=== PATIENT | male | born 1995 | race Caucasian/White ===

== ENCOUNTER 2019-09-23 22:00 | Emergency (ER) | payer MEDICAID ==
[~2019-09-23] VITALS: Ht 167.6 cm; Wt 122.0 kg
[~2019-09-23 22:00] MED LIST: QUET100T4 PO; TRAZ50TA66 PO
[2019-09-23 22:04] VITALS: BP 135/83
--- NOTE | 2019-09-23 22:06 | NUR ---
PT BIB EMS FROM OUTSIDE HIS APARTMENT COMPLEX. REPORT RC'VD FROM EMS. PT PLACED IN LOBBY.
[2019-09-23] MEDS ORDERED: OLANZAPINE 10 MG TABLET PO ONE (22:30)
[2019-09-23] MEDS ORDERED: TRAZODONE 50MG TABLET PO PRN (22:30)
[2019-09-23] MEDS ORDERED: LORazepam 1MG TABLET PO ONE (22:30)
[2019-09-23] MEDS ORDERED: OLANZAPINE 10 MG TABLET ONE (22:35)
[2019-09-23] MEDS ORDERED: TRAZODONE 50MG TABLET ONE (22:35)
[2019-09-23] MEDS ORDERED: LORazepam 1MG TABLET ONE (22:36)
== END 2019-09-23 22:48 | disposition home or self-care (01) ==
LOC: ED 22:36
DX: F51.04 Psychophysiologic insomnia (principal); F20.0 Paranoid schizophrenia; F41.1 Generalized anxiety disorder; F31.9 Bipolar disorder, unspecified; F17.210 Nicotine dependence, cigarettes, uncomplicated
CPT/HCPCS: 99406

== ENCOUNTER 2019-09-24 01:11 | Emergency (ER) | payer MEDICAID ==
[~2019-09-24] VITALS: Ht 167.6 cm; Wt 119.0 kg
[2019-09-24 01:18] VITALS: BP 183/88
[2019-09-24] MEDS ORDERED: OLANZAPINE 5 MG TABLET ONE (01:36)
[2019-09-24] MEDS ORDERED: LORazepam 1MG TABLET ONE (01:36)
[2019-09-24] MEDS ORDERED: LORazepam 1MG TABLET PO ONE (02:00)
[2019-09-24] MEDS ORDERED: OLANZAPINE 5 MG TABLET PO SCH (09:00)
== END 2019-09-24 01:40 ==
LOC: ED 01:29
DX: F41.1 Generalized anxiety disorder (principal); Z76.0 Encounter for issue of repeat prescription; F20.9 Schizophrenia, unspecified; F17.210 Nicotine dependence, cigarettes, uncomplicated; Z72.9 Problem related to lifestyle, unspecified
CPT/HCPCS: 99283; 99406

== ENCOUNTER 2019-09-24 15:24 | Emergency (ER) | payer MEDICAID ==
[~2019-09-24] VITALS: Ht 167.6 cm; Wt 123.0 kg
--- NOTE | 2019-09-24 15:53 | NUR ---
FIRST CONTACT WITH PT. PT SEEN HERE THIS AM, STATES LOST HIS DISCHARGE PAPERWORK, STATES UNABLE TO SLEEP X1 WEEK, STATES ABD PAIN WELL. PT WITH MULTIPLE OTHER COMPLAINTS. RESPS EVEN AND UNLABORED. BP/SPO2 MONITORS IN PLACE. CALL LIGHT WITHIN REACH.
[2019-09-24 16:50] VITALS: BP 129/83
--- NOTE | 2019-09-24 17:02 | NUR ---
PT REFUSED TO LEAVE. SECURITY CALLED.
--- NOTE | 2019-09-24 17:03 | NUR ---
Patient given discharge instructions and they have confirmed that they understand the instructions. Patient ambulatory with steady gait.
== END 2019-09-24 17:04 | disposition home or self-care (01) ==
LOC: ED 16:50
DX: F20.9 Schizophrenia, unspecified (principal); Z76.0 Encounter for issue of repeat prescription
CPT/HCPCS: 99281